=== PATIENT | female | born 1955 | race Two or more races ===

== ENCOUNTER 2021-05-07 13:29 | Emergency (ER) | payer OTHER, MEDICAID ==
[~2021-05-07] VITALS: Ht 172.7 cm; Wt 77.1 kg
[2021-05-07 18:56] VITALS: BP 136/74
== END 2021-05-07 19:28 | disposition home or self-care (01) ==
LOC: ER 13:29
DX: J02.9 Acute pharyngitis, unspecified (principal); R06.02 Shortness of breath; M54.2 Cervicalgia; M54.6 Pain in thoracic spine; R51.9 Headache, unspecified; H92.02 Otalgia, left ear; R53.83 Other fatigue; K21.9 Gastro-esophageal reflux disease without esophagitis; I10 Essential (primary) hypertension

== ENCOUNTER 2021-06-04 06:09 | Emergency (ER) | payer OTHER, MEDICAID ==
[~2021-06-04] VITALS: Ht 160 cm; Wt 73.0 kg
[2021-06-04 07:15] LABS: Basophils # (auto) 0.1 10 ^3/uL (0-0.2); Basophils % (auto) 0.8 % (0.0-2.0); Eosinophils # (auto) 0.3 10 ^3/uL (0-0.8); Eosinophils % (auto) 4.9 % (0.0-7.0); Hematocrit 45.1 % (36.0-46.0); Hemoglobin 15.2 g/dL (12.2-16.2); Lymphocytes # (auto) 2.3 10 ^3/uL (0.4-5.4); Lymphocytes % (auto) 36.1 % (10.0-50.0); Mean Corpuscular Hemoglobin 30.8 pg (28.0-32.0); Mean Corpuscular Hgb Conc. 33.7 g/dL (32.0-36.0); Mean Corpuscular Volume 91.4 fL (80.0-100.0); Monocytes # (auto) 0.5 10 ^3/uL (0-1.3); Monocytes % (auto) 7.4 % (0.0-12.0); Neutrophils # (auto) 3.3 10 ^3/uL (1.6-8.6); Neutrophils % (auto) 50.8 % (37.0-80.0); Nucleated Red Blood Cells % 0.1 %; Red Blood Cells 4.94 10^6/uL (4.0-5.20); Red Cell Distribution Width 14.3 % (11.8-14.3); White Blood Cell 6.4 10^3/uL (4.4-10.8)
[2021-06-04 07:29] LABS: Albumin 3.6 g/dL (3.4-5.0); Calcium 8.9 mg/dL (8.5-10.1); Potassium 4.1 mmol/L (3.5-5.1)
[2021-06-04 07:45] LABS: BUN/Creatinine Ratio 14.5; Bilirubin, Total 0.7 mg/dL (0.2-1.0); Total Protein 7.2 g/dL (6.4-8.2)
[2021-06-04 08:19] LABS: Urine Blood Negative /uL (Negative)
[2021-06-04 08:20] LABS: Urine Bacteria FEW /hpf (None Seen); Urine Mucus FEW (None Seen); Urine WBC 25 /hpf (0 - 5)
[2021-06-04] MEDS ORDERED: cefTRIAXone 1GM/50ML D5W 50 ML IV ONE (10:15)
[2021-06-04] MEDS ORDERED: SODIUM CHLORIDE 0.9% 1,000 ML IV ONE (10:15)
[2021-06-04] MEDS ORDERED: SODIUM CHLORIDE 0.9% 500 ML IVB ONE (10:15)
[2021-06-04 10:51] LABS: Magnesium 2.3 mg/dL (1.6-2.6)
[2021-06-04 16:22] VITALS: BP 144/91
== END 2021-06-04 16:24 | disposition home or self-care (01) ==
LOC: ER 06:09
DX: N39.0 Urinary tract infection, site not specified (principal); G89.29 Other chronic pain; R07.89 Other chest pain; I10 Essential (primary) hypertension; K21.9 Gastro-esophageal reflux disease without esophagitis; Z20.822 Contact with and (suspected) exposure to COVID-19
CPT/HCPCS: 36415; 71045; 80053; 81001; 83690; 83735; 84484; 85025; 87426; 93005; 96365; 99285; J0696; J7030

== ENCOUNTER 2022-09-01 14:52 | Emergency (ER) | payer MEDICAID, OTHER ==
[~2022-09-01] VITALS: Ht 160 cm; Wt 82.0 kg
[2022-09-01 16:25] VITALS: BP 128/95
[2022-09-01] MEDS ORDERED: ACET-1080 PO (17:11)
[2022-09-01] MEDS ORDERED: PRED20TA2 PO (17:11)
[2022-09-01] MEDS ORDERED: AUG875T PO (17:11)
== END 2022-09-01 17:29 | disposition home or self-care (01) ==
LOC: ER 14:52
DX: J01.90 Acute sinusitis, unspecified (principal); H66.93 Otitis media, unspecified, bilateral; Z20.822 Contact with and (suspected) exposure to COVID-19
CPT/HCPCS: 36415; 70450; 71046; 87426

== ENCOUNTER 2023-03-19 19:18 | Emergency (ER) | payer OTHER ==
[~2023-03-19] VITALS: Ht 162.6 cm; Wt 72.0 kg
[~2023-03-19 19:18] MED LIST: ACET-1080 PO; AUG875T PO; PRED20TA2 PO
[2023-03-20] MEDS ORDERED: cefTRIAXone SOD 1,000 MG VL IM ONE (00:45)
[2023-03-20] MEDS: HYDROcodone-ACET 5/325MG TAB PO ONE ×2 (00:45→01:27)
[2023-03-20] MEDS: ONDANSETRON ODT 4 MG TAB PO ONE ×2 (00:45→01:26)
[2023-03-20] MEDS ORDERED: TETANUS-DIPTH-ACEL PERTUSSIS 0.5ML SYR Tdap IM ONE (00:45)
[2023-03-20] MEDS ORDERED: CEPH500C PO (00:48)
[2023-03-20] MEDS ORDERED: ACE3T PO (00:48)
[2023-03-20 01:42] VITALS: BP 132/84; PULSE 76; RESP 18; TEMP 98; O2SAT 98
== END 2023-03-20 06:24 | disposition home or self-care (01) ==
LOC: ER 19:18
DX: L03.032 Cellulitis of left toe (principal); K21.9 Gastro-esophageal reflux disease without esophagitis; I10 Essential (primary) hypertension; Z90.49 Acquired absence of other specified parts of digestive tract
CPT/HCPCS: 73630; 90471; 90715; 96372; 99284; J0696; Q0162

== ENCOUNTER 2023-05-20 10:23 | Emergency (ER) | payer OTHER, MEDICAID ==
[~2023-05-20] VITALS: Ht 170.2 cm; Wt 72.7 kg
[~2023-05-20 10:23] MED LIST changes: +ACE3T PO; +CEPH500C PO
[2023-05-20 10:58] LABS: Basophils # (auto) 0 10 ^3/uL (0-0.2); Basophils % (auto) 0.9 % (0.0-2.0); Eosinophils # (auto) 0.4 10 ^3/uL (0-0.8); Eosinophils % (auto) 8.3 % (0.0-7.0); Hematocrit 45.9 % (36.0-46.0); Hemoglobin 15.3 g/dL (12.2-16.2); Lymphocytes # (auto) 1.4 10 ^3/uL (0.4-5.4); Lymphocytes % (auto) 31.7 % (10.0-50.0); Mean Corpuscular Hemoglobin 31.2 pg (28.0-32.0); Mean Corpuscular Hgb Conc. 33.4 g/dL (32.0-36.0); Mean Corpuscular Volume 93.5 fL (80.0-100.0); Monocytes # (auto) 0.5 10 ^3/uL (0-1.3); Monocytes % (auto) 12.2 % (0.0-12.0); Neutrophils % (auto) 46.9 % (37.0-80.0); Nucleated Red Blood Cells % 0.1 %; Red Blood Cells 4.91 10^6/uL (4.0-5.20); Red Cell Distribution Width 14.2 % (11.8-14.3); White Blood Cell 4.3 10^3/uL (4.4-10.8)
[2023-05-20 11:11] LABS: INR 1.03 (0.9-1.15); Partial Thromboplastin Time 29.4 SEC (24.5-34.5); Prothrombin Time 10.8 sec (9.3-11.8)
[2023-05-20 11:14] LABS: Alanine Aminotransferase 23 U/L (7-40); Albumin 4.3 g/dL (3.2-4.8); Alkaline Phosphatase 63 U/L (46-116); Anion Gap 7 (5-15); Aspartate Aminotransferase 21 U/L (13-40); BUN/Creatinine Ratio 8.1 (10.0-20.0); Bilirubin, Total 0.6 mg/dL (0.2-1.0); Blood Urea Nitrogen 6 mg/dL (9-23); Calcium 9.6 mg/dL (8.5-10.1); Carbon Dioxide 27 mmol/L (20-30); Chloride 105 mmol/L (98-107); Glucose 102 mg/dL (74-106); Potassium 4.6 mmol/L (3.5-5.1); Sodium 139 mmol/L (136-145)
[2023-05-20 11:44] LABS: Magnesium 2.1 mg/dL (1.6-2.6)
[2023-05-20 12:41] LABS: Rapid Influenza A Negative (Negative); Rapid Influenza B Negative (Negative)
[2023-05-20 12:45] LABS: COVID19 ANTIGEN SOFIA FIA POSITIVE (NEGATIVE)
[2023-05-20] MEDS ORDERED: METH4PAK PO (13:20)
[2023-05-20] MEDS ORDERED: AZIT1POW PO (13:20)
[2023-05-20 13:35] VITALS: BP 140/91; PULSE 90; RESP 18; O2SAT 96
== END 2023-05-20 13:38 | disposition home or self-care (01) ==
LOC: ER 10:23
DX: U07.1 COVID-19 (principal); I10 Essential (primary) hypertension; K21.9 Gastro-esophageal reflux disease without esophagitis; Z90.49 Acquired absence of other specified parts of digestive tract; Z90.89 Acquired absence of other organs; Z79.2 Long term (current) use of antibiotics; Z79.899 Other long term (current) drug therapy
CPT/HCPCS: 36415; 71045; 80053; 83735; 84484; 85025; 85610; 85730; 87426; 87804; 93005

== ENCOUNTER 2023-06-07 15:48 | Emergency (ER) | payer OTHER, MEDICAID ==
[~2023-06-07] VITALS: Ht 160 cm; Wt 72.1 kg
[~2023-06-07 15:48] MED LIST changes: +AZIT1POW PO; +METH4PAK PO
[2023-06-07] MEDS ORDERED: SODIUM CHLORIDE 0.9% 1,000 ML IV ONE (16:00)
[2023-06-07] MEDS ORDERED: NALOXONE HCL 1MG/ML 2ML SYRINGE IV ONE (16:00)
[2023-06-07 16:56] LABS: Basophils # (auto) 0 10 ^3/uL (0-0.2); Basophils % (auto) 0.6 % (0.0-2.0); Eosinophils # (auto) 0.1 10 ^3/uL (0-0.8); Eosinophils % (auto) 1.8 % (0.0-7.0); Hemoglobin 14.5 g/dL (12.2-16.2); Lymphocytes # (auto) 1.7 10 ^3/uL (0.4-5.4); Lymphocytes % (auto) 27.9 % (10.0-50.0); Mean Corpuscular Hemoglobin 30.8 pg (28.0-32.0); Mean Corpuscular Hgb Conc. 32.9 g/dL (32.0-36.0); Mean Corpuscular Volume 93.5 fL (80.0-100.0); Monocytes # (auto) 0.4 10 ^3/uL (0-1.3); Monocytes % (auto) 6.6 % (0.0-12.0); Neutrophils # (auto) 3.8 10 ^3/uL (1.6-8.6); Neutrophils % (auto) 63.1 % (37.0-80.0); Nucleated Red Blood Cells % 0.1 %; Red Cell Distribution Width 14.8 % (11.8-14.3)
[2023-06-07 17:12] LABS: Alanine Aminotransferase 17 U/L (7-40); Albumin 4.2 g/dL (3.2-4.8); Alkaline Phosphatase 66 U/L (46-116); Anion Gap 5 (5-15); Aspartate Aminotransferase 13 U/L (13-40); Bilirubin, Total 0.7 mg/dL (0.2-1.0); Blood Urea Nitrogen 8 mg/dL (9-23); Calcium 9.1 mg/dL (8.7-10.4); Carbon Dioxide 25 mmol/L (20-30); Chloride 108 mmol/L (98-107); Glucose 121 mg/dL (74-106); Potassium 3.8 mmol/L (3.5-5.1); Sodium 138 mmol/L (136-145); Total Protein 6.8 g/dL (5.7-8.2)
[2023-06-07 17:28] LABS: BUN/Creatinine Ratio 11.8 (10.0-20.0)
[2023-06-07 19:30] LABS: Urine Bacteria NONE SEEN /hpf (None Seen); Urine Blood Negative /uL (Negative); Urine Clarity Clear (Clear); Urine Color Colorless (Yellow); Urine Protein, UAD Negative (Negative); Urine Specific Gravity 1.003 (1.001-1.035); Urine Urobilinogen Normal (Negative); Urine WBC 1 /hpf (0 - 5); Urine pH 5.5 (5.0-8.0)
[2023-06-08 08:07] LABS: Urine Bacteria NONE SEEN /hpf (None Seen); Urine Blood Negative /uL (Negative); Urine Clarity Clear (Clear); Urine Color Yellow (Yellow); Urine Protein, UAD TRACE (Negative); Urine Urobilinogen Normal (Negative); Urine WBC 4 /hpf (0 - 5)
[2023-06-08 08:18] LABS: Urine Specific Gravity > 1.050 (1.001-1.035)
[2023-06-08 09:00] VITALS: PULSE 63; RESP 10; O2SAT 100
[2023-06-08 20:00] VITALS: BP 136/79; TEMP 98
[2023-06-08 20:05] VITALS: PULSE 69; RESP 12; O2SAT 96
== END 2023-06-08 20:33 | disposition home or self-care (01) ==
LOC: ER 15:48
DX: R10.9 Unspecified abdominal pain (principal); I10 Essential (primary) hypertension; K21.9 Gastro-esophageal reflux disease without esophagitis; Z90.49 Acquired absence of other specified parts of digestive tract
CPT/HCPCS: 36415; 71045; 74176; 74177; 80053; 81001; 85025; 99285; Q9967

== ENCOUNTER 2023-10-15 18:43 | Emergency (ER) | payer OTHER, MEDICAID ==
[2023-10-15 19:03] VITALS: BP 163/92; PULSE 72; RESP 18; TEMP 98; O2SAT 98
[2023-10-15] MEDS ORDERED: ACET500T58 PO (22:41)
== END 2023-10-15 22:57 | disposition home or self-care (01) ==
LOC: ER 18:43
DX: S50.02XA Contusion of left elbow, initial encounter (principal); I10 Essential (primary) hypertension; K21.9 Gastro-esophageal reflux disease without esophagitis; Z90.89 Acquired absence of other organs; Z90.49 Acquired absence of other specified parts of digestive tract; Z79.899 Other long term (current) drug therapy; W22.8XXA Striking against or struck by other objects, initial encounter; Y93.89 Activity, other specified; Y92.89 Other specified places as the place of occurrence of the external cause; Y99.8 Other external cause status
CPT/HCPCS: 73080